=== PATIENT | male | born 1970 | race Two or more races ===

== ENCOUNTER 2022-12-30 13:55 | Outpatient (CLI) | payer BC | END 2022-12-30 23:59 | disposition home or self-care (01) | LOC: MRI 13:55 | PROVIDERS: ATTEND Legal Medicine | DX: S83.241A Other tear of medial meniscus, current injury, right knee, initial encounter (principal); M17.11 Unilateral primary osteoarthritis, right knee; M25.561 Pain in right knee; X58.XXXA Exposure to other specified factors, initial encounter; Y93.89 Activity, other specified; Y92.89 Other specified places as the place of occurrence of the external cause; Y99.8 Other external cause status | CPT/HCPCS: 73721-TC ==

== ENCOUNTER 2025-02-11 15:08 | Emergency (ER) | payer BC ==
[~2025-02-11] VITALS: Ht 170.2 cm; Wt 77.1 kg
[2025-02-11] MEDS: LET SOLN TOPICAL 8 ML UDC TP ONE (15:30)
[2025-02-11] MEDS ORDERED: LET SOLN TOPICAL 8 ML UDC TP ONE (15:31)
[2025-02-11] MEDS ORDERED: TDAP [DIPH/PERTUSSIS/TET] 0.5 ML VIAL IM ONE (15:37)
[2025-02-11] MEDS ORDERED: BACI/NEOM/POLY B OINT PKT 1 UDPKT PACKET ONE (15:40)
[2025-02-11] MEDS: TDAP [DIPH/PERTUSSIS/TET] 0.5 ML VIAL IM ONE (15:43)
[2025-02-11] MEDS: BACI/NEOM/POLY B OINT PKT 1 UDPKT PACKET TP ONE (15:44)
[2025-02-11] MEDS ORDERED: IBUP-1490 PO (16:22)
[2025-02-11 16:44] VITALS: BP 123/78; TEMP 98; O2SAT 99
== END 2025-02-11 16:45 | disposition home or self-care (01) ==
LOC: ER 15:14
DX: S01.81XA Laceration without foreign body of other part of head, initial encounter (principal); W22.8XXA Striking against or struck by other objects, initial encounter; Y93.89 Activity, other specified; Y92.481 Parking lot as the place of occurrence of the external cause; Y99.8 Other external cause status
CPT/HCPCS: 90715